=== PATIENT | female | born 1985 | race Caucasian/White ===

== ENCOUNTER 2019-02-27 16:31 | Outpatient (CLI) | payer OTHER | END 2019-02-27 17:52 | disposition home or self-care (01) | LOC: NST 16:31 | DX: Z34.82 Encounter for supervision of other normal pregnancy, second trimester (principal) ==

== ENCOUNTER 2019-03-25 10:11 | Outpatient (CLI) | payer OTHER | END 2019-03-25 12:40 | disposition home or self-care (01) | LOC: NST 10:11 | DX: Z34.83 Encounter for supervision of other normal pregnancy, third trimester (principal) ==

== ENCOUNTER 2019-05-01 12:08 | Inpatient (IN) | payer OTHER ==
[~2019-05-01] VITALS: Ht 152.4 cm; Wt 78.0 kg
[2019-05-08] MEDS ORDERED: ATABEX DHA 200200 MG PO (13:54)
[2019-05-08] MEDS ORDERED: MAXFE CAPLET1 EACH PO (13:54)
== END 2019-05-28 13:31 | disposition home or self-care (01) | DRG 788 ==
LOC: LDR 05-25 10:30 → OB/GYN 05-25 10:30
PROVIDERS: ADMIT Obstetrics & Gynecology Maternal & Fetal Medicine
PROC: 4A1HXCZ Monitoring of Products of Conception, Cardiac Rate, External Approach (ICD-10-PCS; 2019-05-25)
PROC: 10D00Z1 Extraction of Products of Conception, Low, Open Approach (ICD-10-PCS; principal; 2019-05-25 10:00)
DX: O82 Encounter for cesarean delivery without indication (principal); Z3A.38 38 weeks gestation of pregnancy; Z37.0 Single live birth

== ENCOUNTER 2019-05-22 11:59 | Outpatient (CLI) | payer OTHER ==
[~2019-05-22 11:59] MED LIST: ATABEX DHA 200200 MG PO; MAXFE CAPLET1 EACH PO
== END 2019-05-22 13:11 | disposition home or self-care (01) ==
LOC: NST 11:59
DX: Z34.83 Encounter for supervision of other normal pregnancy, third trimester (principal)

== ENCOUNTER 2020-09-08 07:15 | Inpatient (IN) | payer OTHER ==
[~2020-09-08] VITALS: Ht 152.4 cm; Wt 80.7 kg
[2020-09-08] MEDS ORDERED: OBTREX DHA COM1 EACH PO (09:46)
[2020-09-08] MEDS ORDERED: IRON325 MG PO (18:37)
== END 2020-09-11 14:35 | disposition home or self-care (01) | DRG 785 ==
LOC: EDSTATUS 07:15 → ADM 07:15 → OB/GYN 07:15 → LDR 17:53 → O/R 22:18 → OB/GYN 09-09 00:54
PROVIDERS: ADMIT Obstetrics & Gynecology; ATTEND Obstetrics & Gynecology
PROC: 0UB70ZZ Excision of Bilateral Fallopian Tubes, Open Approach (ICD-10-PCS; 2020-09-08)
PROC: 4A1HXFZ Monitoring of Products of Conception, Cardiac Rhythm, External Approach (ICD-10-PCS; 2020-09-08)
PROC: 10D00Z1 Extraction of Products of Conception, Low, Open Approach (ICD-10-PCS; principal; 2020-09-08 18:00)
DX: O65.5 Obstructed labor due to abnormality of maternal pelvic organs (principal); O34.211 Maternal care for low transverse scar from previous cesarean delivery; Z3A.38 38 weeks gestation of pregnancy; Z37.0 Single live birth; Z20.822 Contact with and (suspected) exposure to COVID-19; Z30.2 Encounter for sterilization